=== PATIENT | male | born 1970 | race African-American/Black ===

== ENCOUNTER 2017-02-25 18:43 | Emergency (ER) | payer OTHER ==
[~2017-02-25] VITALS: Ht 175.3 cm; Wt 72.7 kg
[2017-02-25 19:04] VITALS: BP 113/78
--- NOTE | 2017-02-25 20:51 | NUR ---
PT TAKEN TO BED 6
--- NOTE | 2017-02-25 21:00 | NUR ---
46Y M BIB FAMILY C/O ABSCESS TO RIGHT GREAT TOE AND BRUISING TO LEFT INNER THIGH OF UNKNOWN ORIGIN. PT DENIES ANY N/V/D, SOB, CP AT THE MOMENT. BREATHING IN UNLABORED, AND CLEAR BILAT. PT STATES HE HAS SICKLE CELL TRAIT AND NKA.
--- NOTE | 2017-02-25 21:58 | NUR ---
Dr. Melendez evaluating patient at bedside.
[2017-02-25] MEDS ORDERED: KETOROLAC 60 MG/2 ML VIAL IM ONE (22:05)
[2017-02-25 22:30] LABS: BASOPHILS # (AUTO) 0.4 K/uL (0.00-0.22); BASOPHILS % (AUTO) 4.7 % (0.0-2.0); EOSINOPHILS # (AUTO) 0.1 K/uL (0-0.4); EOSINOPHILS % (AUTO) 0.8 % (0.0-4.0); HEMOGLOBIN 13.9 g/dL (12.0-18.0); LYMPHOCYTES # (AUTO) 2.7 K/uL (2.0-11.5); LYMPHOCYTES % (AUTO) 36.4 % (20.5-51.1); MEAN CORPUSCULAR HEMOGLOBIN 31 pg (27-31); MEAN CORPUSCULAR HGB CONC 34 g/dL (33-37); MEAN CORPUSCULAR VOLUME 93 fL (80-94); MONOCYTES # (AUTO) 0.7 K/uL (0.8-1.0); MONOCYTES % (AUTO) 9.5 % (1.7-9.3); NEUTROPHILS # (AUTO) 3.6 K/uL (1.8-7.7); NEUTROPHILS % (AUTO) 48.6 % (42.2-75.2); PLATELET COUNT (AUTO) 163 K/uL (140-450); RED BLOOD CELL COUNT(AUTO) 4.42 MIL/uL (4.20-6.10); RED CELL DISTRIBUTION WIDTH 11.3 % (11.6-13.7); WHITE BLOOD COUNT (AUTO) 7.5 K/uL (4.8-10.8)
[2017-02-25 22:43] LABS: ALBUMIN 4.2 g/dL (3.4-5.0); ANION GAP 16.9 (8-16); CALCIUM 8.5 mg/dL (8.5-10.1); CARBON DIOXIDE 26.6 mmol/L (21-32); CREATININE 1.2 mg/dL (0.7-1.3); POTASSIUM 3.5 mmol/L (3.5-5.1); TOTAL BILIRUBIN 0.7 mg/dL (0.0-1.0); TOTAL PROTEIN, SERUM 8.3 g/dL (6.4-8.2)
[2017-02-25 22:48] LABS: PARTIAL THROMBOPLASTIN TIME 22.5 secs (22-35.6); PROTHROMBIN TIME 9.9 secs (10.8-13.4)
[2017-02-25 23:02] VITALS: BP 111/71
--- NOTE | 2017-02-25 23:02 | NUR ---
Patient discharged with v/s stable. Written and verbal after care instructions given and explained. Patient alert, oriented and verbalized understanding of instructions. Ambulatory with steady gait. All questions addressed prior to discharge. ID band removed. Patient advised to follow up with PMD. Rx of MOTRIN 800MG, KEFLEX 500MG QID, BACTRIM DS 800MG-160MG BID given. Patient educated on indication of medication including possible reaction and side effects. Opportunity to ask questions provided and answered.
== END 2017-02-25 23:02 | disposition home or self-care (01) ==
LOC: MED 18:43
DX: L03.116 Cellulitis of left lower limb (principal); M79.81 Nontraumatic hematoma of soft tissue; L97.519 Non-pressure chronic ulcer of other part of right foot with unspecified severity; F17.200 Nicotine dependence, unspecified, uncomplicated
CPT/HCPCS: 36415; 80053; 82948; 85025; 85610; 85730; 96372; 99284; J1885

== ENCOUNTER 2020-10-31 13:23 | Emergency (ER) | payer MEDICAID, OTHER ==
[~2020-10-31] VITALS: Ht 175.3 cm; Wt 81.6 kg
[2020-10-31 13:31] VITALS: BP 116/67
[2020-10-31] MEDS ORDERED: LORazepam 2 MG/ML VIAL ONE (13:32)
--- NOTE | 2020-10-31 13:33 | NUR ---
49 YEAR OLD MALE BIBA, PER EMS PT FOUND ON SIDEWALK LAYING ON THE FLOOR. PER EMS PT WAS ALTERED, HAS HISTORY OF SEIZURES. PT ARRIVED CONFUSED, [facility] 14. PT PLACED ON MONITOR, SEIZURE PRECAUTIONS IN PLACE. PT ALERT AND AWAKE, BREATHING EVEN AND UNLABORED, SKIN WARM AND DRY. BED IN LOWEST POSITION, LOCKED, BED RAIL UPX2. PMH - SEIZURE (PER EMS) ALLERGIES - UNABLE TO OBTAIN
--- NOTE | 2020-10-31 13:35 | NUR ---
PT HAVING SEIZURE AT THIS TIME, ERMD AT BEDSIDE
[2020-10-31] MEDS ORDERED: LORazepam 2 MG/ML VIAL IM ONE (13:40)
--- NOTE | 2020-10-31 14:20 | NUR ---
PT STATES HE HAS TO USE BATHROOM, URINAL GIVEN AND PEED INTO.
[2020-10-31 14:31] LABS: APPEARANCE,URINE CLEAR (CLEAR); BILIRUBIN,URINE NEGATIVE (NEGATIVE); BLOOD, URINE NEGATIVE (NEGATIVE); COLOR,URINE YELLOW (YELLOW); LEUKOCYTE ESTERASE ,URINE TRACE (NEGATIVE); NITRITE, URINE POSITIVE (NEGATIVE); UGLUCOSE NEGATIVE (NEGATIVE)
[2020-10-31 14:39] LABS: BARBITURATE, URINE NEGATIVE ng/ml (NEG <=200); BENZODIAZEPINE, URINE NEGATIVE ng/mL (NEG <=200); CANNABINOID, URINE NEGATIVE ng/mL (NEG <=50); COCAINE, URINE NEGATIVE ng/mL (NEG <=300); OPIATE, URINE NEGATIVE ng/mL (NEG <=2000); PHENCYCLIDINE SCREEN,URINE NEGATIVE ng/mL (NEG <=25)
[2020-10-31 14:44] LABS: RBC,URINE FEW /HPF (0-5); WBC,URINE 0-5 /HPF (0-5)
--- NOTE | 2020-10-31 14:46 | NUR ---
PT REMAINS RESTING WITH EYES CLOSED, BREATHING EVEN AND UNLABORED. NO DISTRESS NOTED. NO SEIZURE SINCE EVENT. PT REMAINS ON MONITOR, VS STABLE.
[2020-10-31 14:49] LABS: ACETAMINOPHEN < 0.5 ug/ml (10-30); ALBUMIN 3.6 g/dL (3.4-5.0); ANION GAP 14.8 (8-16); ASPARTATE AMINOTRANSFERASE 100 U/L (15-37); CHLORIDE 105 mmol/L (98-107); CREATININE 0.7 mg/dL (0.6-1.3); GFR ARICAN-AMERICAN 153 mL/min (>90); GLUCOSE 85 mg/dL (74-106); POTASSIUM 3.8 mmol/L (3.5-5.1); SODIUM SERUM 142 mmol/L (136-145); TOTAL BILIRUBIN 0.2 mg/dL (0.0-1.0); UREA NITROGEN, BLOOD 6 mg/dL (7-18)
--- NOTE | 2020-10-31 14:51 | NUR ---
LACTIC ACID 2.6--CRITICAL VALUE FROM LAB. DR OLVERA MADE AWARE.
[2020-10-31] MEDS ORDERED: NACL 0.9% 1,000 ML IV ONE (15:00)
[2020-10-31 15:13] LABS: BASOPHILS # (AUTO) 0.1 K/uL (0.00-0.22); BASOPHILS % (AUTO) 1.2 % (0.0-2.0); CKMB RELATIVE INDEX 0.2 (0.0-2.5); CREATINE KINASE MB 0.8 ng/mL (0-3.6); EOSINOPHILS # (AUTO) 0.2 K/uL (0-0.4); EOSINOPHILS % (AUTO) 3.5 % (0.0-4.0); HEMOGLOBIN 12.3 g/dL (12.0-18.0); LYMPHOCYTES # (AUTO) 2.8 K/uL (2.0-11.5); LYMPHOCYTES % (AUTO) 52.5 % (20.5-51.1); MEAN CORPUSCULAR HEMOGLOBIN 32 pg (27-31); MEAN CORPUSCULAR HGB CONC 33 g/dL (33-37); MEAN CORPUSCULAR VOLUME 97.1 fL (80-94); MONOCYTES # (AUTO) 0.4 K/uL (0.8-1.0); MONOCYTES % (AUTO) 7.9 % (1.7-9.3); NEUTROPHILS # (AUTO) 1.9 K/uL (1.8-7.7); NEUTROPHILS % (AUTO) 34.9 % (42.2-75.2); PLATELET COUNT (AUTO) 270 K/uL (140-450); RED BLOOD CELL COUNT(AUTO) 3.81 MIL/uL (4.20-6.10); RED CELL DISTRIBUTION WIDTH 13.5 % (11.6-13.7); WHITE BLOOD COUNT (AUTO) 5.4 K/uL (4.8-10.8)
--- NOTE | 2020-10-31 16:15 | NUR ---
ASSUMED CARE OF PATIENT AT THIS TIME
--- NOTE | 2020-10-31 17:45 | NUR ---
PATIENT ABLE TO AMBULATE WITH STEADY GAIT. PO CHALLENGE INITIATED PER DR ZAMUDIO ORDERS
[2020-10-31 18:19] VITALS: BP 121/75
--- NOTE | 2020-10-31 18:20 | NUR ---
Patient discharged with v/s stable. Written and verbal after care instructions given and explained. Patient verbalized understanding. Ambulatory with steady gait. All questions addressed prior to discharge. Advised to follow up with PMD.
--- NOTE | 2020-11-01 19:19 | NUR ---
LATE ENTRY--- 0.9% NS DISCONTINUED AT 1615
== END 2020-10-31 18:20 | disposition home or self-care (01) ==
LOC: MED 13:23
DX: F10.129 Alcohol abuse with intoxication, unspecified (principal); R41.82 Altered mental status, unspecified; Y90.9 Presence of alcohol in blood, level not specified
CPT/HCPCS: 36415; 70450; 71045; 80053; 80305; 81001; 82140; 82550; 82553; 83605; 84484; 85025; 87086; 93005; 96360; 96372; 99285; G0480; G0482; J2060; J7030